=== PATIENT | male | born 1985 | race Caucasian/White ===

== ENCOUNTER 2022-06-30 20:00 | Emergency (ER) | payer BC ==
[2022-06-30 20:08] VITALS: BP 117/83; PULSE 82; RESP 20; TEMP 98.2; BMI 18.6
[2022-06-30] MEDS ORDERED: FAMOTIDINE 20 MG/50 ML IVPB 20 MG/50 ML MG IVPB ONE ×2 (20:41→20:51)
[2022-06-30 21:02] LABS: BASO % 0.6 % (0-2.0); EOS % 4.9 % (0-4.5); HEMATOCRIT 40.3 % (35.4-49); HEMOGLOBIN 13.4 GM/dL (11.7-16.9); MCH 25.9 pg (25.7-33.7); MCHC 33.3 g/dl (32.0-35.9); MEAN CELL VOLUME 77.6 fl (80-96); MONO % 7.6 % (3.8-10.2); NEUT % 47.9 % (42.8-82.8); PLATELET COUNT 255 10^3/uL (134-434); RBC 5.19 M/mm3 (4.00-5.60); RDW 12.9 % (11.9-15.9); WHITE BLOOD COUNT 7.8 K/mm3 (4.0-10.0)
[2022-06-30 21:09] LABS: INR 1.04 (0.83-1.09)
[2022-06-30 21:33] LABS: ALBUMIN 3.9 g/dl (3.4-5.0); CALCIUM 9.1 mg/dL (8.5-10.1)
[2022-06-30 21:37] LABS: CREATININE 0.8 mg/dL (0.55-1.3)
[2022-06-30 21:38] LABS: BILIRUBIN,TOTAL 0.3 mg/dL (0.2-1); BLOOD UREA NITROGEN 10.2 mg/dL (7-18); TOT PROT 7.4 g/dl (6.4-8.2)
== END 2022-06-30 22:41 | disposition home or self-care (01) ==
LOC: JERFT 20:00
PROC: 3E033GC Introduction of Other Therapeutic Substance into Peripheral Vein, Percutaneous Approach (ICD-10-PCS; principal; 2022-06-30)
DX: R07.89 Other chest pain (principal)
CPT/HCPCS: 36415; 71046-TC-FY; 80053; 84484; 85025; 85379; 85610; 93005; 93010; 99285-25

== ENCOUNTER 2022-07-02 13:32 | Emergency (ER) | payer BC ==
[2022-07-02 13:47] VITALS: BP 109/73; PULSE 92; RESP 18; TEMP 98.3; BMI 18.6
[2022-07-02] MEDS ORDERED: KETOROLAC TROMETHAMINE 30 MG/1 ML VIAL IM ONE (15:37)
[2022-07-02] MEDS ORDERED: KETOROLAC TROMETHAMINE 30 MG/1 ML VIAL ONE (15:38)
== END 2022-07-02 16:03 | disposition home or self-care (01) ==
LOC: JER 13:32
PROC: 3E0233Z Introduction of Anti-inflammatory into Muscle, Percutaneous Approach (ICD-10-PCS; principal; 2022-07-02)
DX: R07.9 Chest pain, unspecified (principal)
CPT/HCPCS: 93005; 93010; 99284-25